=== PATIENT | male | born 1965 | race Caucasian/White ===

== ENCOUNTER → 2020-10-28 | Outpatient (CLI) | payer BC, OTHER ==
[~2020-10-28] MED LIST: CHRONULAC20 GM/30 M GT; IBUPROFEN600 MG PO; ZOFRAN4 MG PO
== END ==
LOC: CT 09:36
DX: I73.9 Peripheral vascular disease, unspecified (principal); Z79.01 Long term (current) use of anticoagulants; Z79.02 Long term (current) use of antithrombotics/antiplatelets; I74.5 Embolism and thrombosis of iliac artery; I74.09 Other arterial embolism and thrombosis of abdominal aorta
CPT/HCPCS: 36415; 75635; 82565; 84520; Q9967

== ENCOUNTER → 2021-02-08 | Outpatient (CLI) | payer BC, OTHER | LOC: HEART 5 09:05 | DX: Z01.811 Encounter for preprocedural respiratory examination (principal); I73.9 Peripheral vascular disease, unspecified; Z88.8 Allergy status to other drugs, medicaments and biological substances; R94.2 Abnormal results of pulmonary function studies | CPT/HCPCS: 94060; 94729 ==